=== PATIENT | female | born 1985 | race Caucasian/White ===

== ENCOUNTER → 2024-12-04 11:50 | Outpatient (CLI) | payer OTHER, SELFPAY | PROVIDERS: PCP Family Medicine; Visit Provider Registered Nurse | DX: R30.0 Dysuria (principal) | CPT/HCPCS: 87077; 87086 ==

== ENCOUNTER → 2024-12-11 09:27 | Outpatient (CLI) | payer OTHER, SELFPAY ==
[2024-12-11 11:13] LABS: Free T3, Triiodothyronine Free 2.63 pg/mL (2.77-5.27); Free T4, Direct Thyroxine 0.74 ng/dL (0.78-2.19)
[2024-12-11 11:27] LABS: Thyroid Stimulating Hormone 9.28 uIU/mL (0.47-4.68)
== END ==
PROVIDERS: PCP Family Medicine; Referring Provider Family Medicine; Visit Provider Family Medicine
DX: E03.9 Hypothyroidism, unspecified (principal)
CPT/HCPCS: 36415; 84439; 84443; 84481

== ENCOUNTER 2024-12-11 21:36 | Emergency (ER) | payer OTHER, SELFPAY ==
[2024-12-11 21:49] VITALS: BP 133/72; PULSE 86; RESP 17; TEMP 36.8; O2SAT 98
[2024-12-11 21:56] LABS: Appearance Urine UA CLOUDY; Bilirubin Urine UA NEGATIVE (NEGATIVE); Color Urine UA YELLOW; Glucose Urine UA NEGATIVE (Negative); Ketones Urine UA NEGATIVE (NEGATIVE); Leukocyte Esterase Urine UA 3+ (NEGATIVE); Nitrite Urine UA NEGATIVE (Negative); Occult Blood Urine UA 3+ (Negative); Protein Urine UA 2+ (Negative); Specific Gravity Urine UA 1.020 (1.000-1.035); Urobilinogen Urine UA 1.0 E.U./dL (0.2)
[2024-12-11 21:57] LABS: pH Urine UA 7.0 (4.5-8.0)
[2024-12-11 22:07] LABS: Culture Indicated Urine Specimen Cultured
--- NOTE | 2024-12-11 22:22 | ED.FEMALEGU ---
HPI - Female Genitourinary General Chief complaint: Urogenital-Female Stated complaint: UTI Time Seen by Provider: 12/11/24 22:14 Source: patient Mode of arrival: Ambulatory History of Present Illness HPI Narrative: Patient is a 39-year-old female history of bipolar PTSD fibromyalgia presenting today with painful urination. She reports that she was diagnosed with a UTI on December 04 and treated with Macrobid for about 5 days. She reports that the symptoms actually improved and got better, she finished antibiotics 4 days ago symptoms came back tonight where she has a extreme burning with urination. She is quite uncomfortable sitting care. She denies any flank pain no nausea no vomiting some mild suprapubic pain. Denies any vaginal discharge no concern for STD. Culture from December 04 shows Staphylococcus saprophyticus appropriately treated with Macrobid. Related Data Home Medications ?Medication ?Instructions ?Recorded ?Confirmed aripiprazole 10 mg tablet 10 mg PO DAILY 04/09/23 12/11/24 bupropion HCl 300 mg 24 hr tablet, 300 mg PO DAILY 04/09/23 12/04/24 extended release escitalopram oxalate 20 mg tablet 20 mg PO DAILY 04/09/23 12/11/24 eszopiclone 3 mg tablet 3 mg PO ONCE PM PRN 04/09/23 12/11/24 Previous Rx's ?Medication ?Instructions ?Recorded ondansetron 4 mg disintegrating 4 mg PO Q6-8H PRN nausea and 02/08/24 tablet vomiting #90 tabs galcanezumab-gnlm 120 mg/mL 120 mg SUBCUT QMONTH #1 mL 04/26/24 subcutaneous pen injector (Emgality Pen) erythromycin 5 mg/gram (0.5 %) eye 0.5 inch EYE-LEFT Q6H #3.5 grams 05/24/24 ointment montelukast 10 mg tablet 10 mg PO DAILY #90 tabs 06/05/24 albuterol sulfate 90 mcg/actuation 1 - 2 puff inhalation Q4-6H PRN 08/14/24 aerosol inhaler bronchospasm #25.5 grams rizatriptan 10 mg disintegrating 10 mg PO Q2-4H PRN migraine 08/23/24 tablet (Maxalt-BOAT WRAPPER) headache #30 tabs celecoxib 200 mg capsule 200 mg PO DAILY #90 caps 09/18/24 cyclobenzaprine 10 mg tablet 10 mg PO Q8H PRN muscle spasm #270 10/17/24 tabs triamcinolone acetonide 0.1 % 1 applic topical BID PRN rash #30 10/31/24 topical cream grams estradiol 1 mg tablet 1 mg PO DAILY #90 tabs 11/21/24 phenazopyridine 100 mg tablet 100 mg PO TID PRN pain 6 doses #6 12/11/24 (Pyridium) tabs pregabalin 150 mg capsule (Lyrica) 150 mg PO Q8H #90 caps 12/11/24 levothyroxine 112 mcg tablet 112 mcg PO DAILY #90 tabs 12/18/24 Allergies Allergy/AdvReac Type Severity Reaction Status Date / Time gabapentin AdvReac Intermediate anger Uncoded 12/11/24 21:49 Patient History Medical History Bipolar 1 disorder Vision disorder Sjogren's syndrome Rheumatoid arthritis Lupus PTSD (post-traumatic stress disorder) History of bipolar disorder Headache GERD (gastroesophageal reflux disease) Hypothyroidism (acquired) Insomnia Marijuana use Migraine Fibromyalgia Depression, unspecified Surgical History Status post hysterectomy H/O gastric sleeve Anesthesia History of strabismus surgery Status post tonsillectomy Status post thyroidectomy Status post hysterectomy (~11/2019) Status post sleeve gastrectomy Family History Grandfather Cancer Grandmother Cancer Exam Initial Vital Signs Initial Vital Signs: Vital Signs Temperature 98.3 F 12/11/24 21:49 Pulse Rate 86 12/11/24 21:49 Respiratory Rate 17 12/11/24 21:49 Blood Pressure 133/72 12/11/24 21:49 Pulse Oximetry 98 12/11/24 21:49 Oxygen Delivery Method Room Air 12/11/24 21:49 GENERAL: Alert 39-year-old female appears uncomfortable and in no acute distress. HEENT: Head atraumatic,EOMI, pupils reactive, face symmetric, moist mucous membranes CARDIOVASCULAR: Regular rate and rhythm without murmurs, rubs or gallops. RESPIRATORY: Breath sounds equal bilaterally, no wheezes rales or rhonchi. ABDOMEN: Soft minimal suprapubic pain no guarding no rebound : No CVA tenderness EXTREMITIES: Normal range of motion, no clubbing or edema. Neurovascularly intact NEUROLOGICAL: Alert and oriented x4.Normal gait and speech. SKIN: Warm, dry, no laceration, no petechiae, no rashes or lesions. Course Orders Ordered: Discontinued Medications Ceftriaxone Sodium 1,000 mg/ (Sodium Chloride) 100 mls @ 200 mls/hr IV NOW ONE Stop: 12/11/24 22:23 Last Infusion: 12/11/24 23:13 Dose: Infused Documented By: Admin: 12/11/24 22:35 Dose: 200 mls/hr Documented By: SHELBY Phenazopyridine HCl (Phenazopyridine 100 Mg Tablet) 100 mg PO NOW ONE Stop: 12/11/24 23:04 Last Admin: 12/11/24 23:15 Dose: 100 mg Documented By: MISAELG Vital Signs Vital signs: Vital Signs - 8 hr 12/11/24 21:49 12/11/24 22:24 12/11/24 22:30 Temperature 98.3 F Pulse Rate 86 77 Respiratory Rate 17 Blood Pressure 133/72 120/71 Pulse Oximetry 98 98 Oxygen Delivery Method Room Air 12/11/24 22:30 Temperature Pulse Rate 76 Respiratory Rate 17 Blood Pressure Pulse Oximetry 96 Oxygen Delivery Method Room Air MDM - Female Genitourinary Lab Data 12/11/24 22:33 12/11/24 22:33 Labs: Lab Results 12/11/24 12/11/24 Range/Units 21:45 22:33 WBC 9.2 (4.5-11.0) X10^3/uL RBC 4.08 (4.0-5.2) X10^6/uL Hgb 13.1 (12.0-16.0) g/dL Hct 37.3 (36-46) % MCV 91.2 (80-100) fL MCH 32.0 (26-34) PG MCHC 35.0 (30-36) % RDW 12.8 (11.6-14.8) % Plt Count 212 (150-400) X10^3/uL Neut % (Auto) 54.8 (50-75) % Lymph % (Auto) 32.4 (25-40) % [place] % (Auto) 6.3 (3-14) % Eos % (Auto) 6.3 H (2-4) % Baso % (Auto) 0.2 (0-2) % Neut # (Auto) 5100 (1569-4955) /uL Lymph # (Auto) 3000 (9196-3598) /uL [place] # (Auto) 600 (0-900) /uL Eos # (Auto) 600 H (0-450) /uL Baso # (Auto) 0 (0-100) /uL Sodium 135 L (137-145) mmol/L Potassium 4.0 (3.4-5.1) mmol/L Chloride 104 (98-107) mmol/L Carbon Dioxide 26 (22-32) mmol/L BUN 20 H (7-17) mg/dL Creatinine 0.72 (0.52-1.04) mg/dL Estimated GFR > 60 (>60) mL/min BUN/Creatinine Ratio 27.8 H (6-22) Glucose 83 (70-99) mg/dL Calcium 9.3 (8.4-10.2) mg/dL Total Bilirubin 0.4 (0.2-1.3) mg/dL AST 26 (14-36) IU/L ALT 18 (<35) IU/L Alkaline Phosphatase 56 (38-126) U/L Total Protein 7.5 (6.3-8.2) g/dL Albumin 4.5 (3.5-5.0) g/dL Globulin 3.0 (1.7-4.1) g/dL Albumin/Globulin Ratio 1.5 (1.0-2.8) Urine Color Yellow Urine Appearance Cloudy Urine pH 7.0 (4.5-8.0) Ur Specific [place] 1.020 (1.000-1.035) Urine Protein 2+ H (Negative) Urine Glucose (UA) Negative (Negative) g/dL Urine Ketones Negative (NEGATIVE) Urine Occult Blood 3+ H (Negative) Urine Nitrate Negative (Negative) Urine Bilirubin Negative (NEGATIVE) Urine Urobilinogen 1.0 (0.2) E.U./dL Ur Leukocyte Esterase 3+ H (NEGATIVE) Urine RBC 0-1/hpf (0-5/HPF) Urine WBC 30-100/hpf H (0-5/HPF) Ur Squamous Epith Cells 1-5 /hpf (0-5/HPF) Triple Phos Crystals Occasional Urine Bacteria Moderate (10-30) H (None) Urine Mucus 2+ H (Negative) Ur Culture Indicated? Specimen cultured Vol Urine Centrifuged 10ml (spun) MDM Narrative Medical decision making narrative: Patient 39-year-old female presenting today with painful urination. She was diagnosed with UTI Staphylococcus saprophyticus on the appropriately treated with Macrobid symptoms improve and Macrobid however 3 days off antibiotics she started having symptoms again. She has no flank pain vitals are actually stable but she appears very uncomfortable. Blood work has been reviewed overall reassuring no leukocytosis no anemia no electrolyte abnormalities Vitals are stable no concern for sepsis at this time She is given 1 dose of Rocephin in the ED We would go ahead and treat with Macrobid for another week. Discharge Plan Departure Patient Disposition: Home Clinical Impression: UTI (urinary tract infection) Instructions: DI for Urinary Tract Infection (UTI) Activity Restrictions/Additional Instructions: *You have been diagnosed with UTI *What to do: At this time blood work is overall reassuring we will put you on another course of antibiotics for long *Continue to take medications as directed Macrobid 100 mg twice a day for 7 days Pyridium 2 times a day as needed for pain *Follow up with your primary care provider in 2-3 days or call [phone] *Return to ER if you should have increasing flank pain nausea vomiting fever or any new, worsening or concerning symptoms Prescriptions: New phenazopyridine [Pyridium] 100 mg tablet 100 mg PO TID PRN (Reason: pain) Qty: 6 0RF No Action erythromycin 5 mg/gram (0.5 %) ointment 0.5 inch EYE-LEFT Q6H Qty: 3.5 0RF ondansetron 4 mg tablet,disintegrating 4 mg PO Q6-8H PRN (Reason: nausea and vomiting) Qty: 90 2RF Emgality Pen 120 mg/mL pen injector 120 mg SUBCUT QMONTH Qty: 1 11RF Rx Instructions: start month 2 after loading dose montelukast 10 mg tablet 10 mg PO DAILY Qty: 90 3RF albuterol sulfate 90 mcg/actuation HFA aerosol inhaler 1 - 2 puff inhalation Q4-6H PRN (Reason: bronchospasm) Qty: 25.5 2RF rizatriptan [Maxalt-BOAT WRAPPER] 10 mg tablet,disintegrating 10 mg PO Q2-4H PRN (Reason: migraine headache) Qty: 30 3RF Rx Instructions: do not exceed 2 doses per 24 hrs celecoxib 200 mg capsule 200 mg PO DAILY Qty: 90 3RF Rx Instructions: with food cyclobenzaprine 10 mg tablet 10 mg PO Q8H PRN (Reason: muscle spasm) Qty: 270 2RF triamcinolone acetonide 0.1 % cream 1 applic topical BID PRN (Reason: rash) Qty: 30 11RF Rx Instructions: use for a 2 wks if needed then stop for 1-2 wks. can repeat as needed estradiol 1 mg tablet 1 mg PO DAILY Qty: 90 3RF Rx Instructions: for 3 weeks, off 1 week; repeat cycle levothyroxine 112 mcg tablet 112 mcg PO DAILY Qty: 90 3RF bupropion HCl 300 mg tablet extended release 24 hr 300 mg PO DAILY aripiprazole 10 mg tablet 10 mg PO DAILY escitalopram oxalate 20 mg tablet 20 mg PO DAILY eszopiclone 3 mg tablet 3 mg PO ONCE PM PRN pregabalin [Lyrica] 150 mg capsule 150 mg PO Q8H Qty: 90 5RF Referrals: Britni Tate DO [Primary Care Provider, Family Practice] Stand Alone Forms: Patient Portal/API
[2024-12-11 22:24] VITALS: PULSE 77; O2SAT 98
[2024-12-11 22:30] VITALS: BP 120/71; PULSE 76; RESP 17; O2SAT 96
[2024-12-11 22:39] LABS: Add Manual Diff / Slide Review NO; Hematocrit 37.3 % (36-46); Hemoglobin 13.1 g/dL (12.0-16.0); Lymphocytes Absolute Auto 3000 /uL (1100-4500); Mean Corpuscular HGB Conc 35.0 % (30-36); Mean Corpuscular Hemoglobin 32.0 PG (26-34); Mean Corpuscular Volume 91.2 fL (80-100); Platelet Count 212 X10^3/uL (150-400)
[2024-12-11 22:50] LABS: Alanine Aminotransferase 18 IU/L (<35); Albumin 4.5 g/dL (3.5-5.0); Albumin Globulin Ratio 1.5 (1.0-2.8); Alkaline Phosphatase 56 U/L (38-126); Blood Urea Nitrogen 20 mg/dL (7-17); Calcium 9.3 mg/dL (8.4-10.2); Carbon Dioxide 26 mmol/L (22-32); Chloride 104 mmol/L (98-107); Estimated Glomerular Filt Rate > 60 mL/min (>60); Globulin 3.0 g/dL (1.7-4.1); Glucose 83 mg/dL (70-99); HEMOLYSIS 24 (0-50); Potassium 4.0 mmol/L (3.4-5.1); Sodium 135 mmol/L (137-145); Total Protein 7.5 g/dL (6.3-8.2)
[2024-12-11] MEDS: PHENAZOPYRIDINE 100 MG TABLET PO (23:15)
== END 2024-12-11 23:21 | disposition home or self-care (01) ==
PROVIDERS: Emergency Provider Emergency Medicine; PCP Family Medicine
DX: N39.0 Urinary tract infection, site not specified (principal); E03.9 Hypothyroidism, unspecified
CPT/HCPCS: 36415; 80053; 81001; 84439; 84443; 84481; 85025; 87077; 87086; 96365; 99284; J0696

== ENCOUNTER → 2025-02-05 11:01 | Outpatient (CLI) | payer OTHER, SELFPAY ==
[2025-02-05 12:26] LABS: TSH w/ Reflex to FT4 4.58 uIU/mL (0.47-4.68)
== END ==
PROVIDERS: PCP Family Medicine; Referring Provider Family Medicine; Visit Provider Family Medicine
DX: E03.9 Hypothyroidism, unspecified (principal)
CPT/HCPCS: 36415; 84443